=== PATIENT | female | born 1990 | race Two or more races ===

== ENCOUNTER 2019-12-27 15:38 | Emergency (ER) | payer SELFPAY ==
[~2019-12-27] VITALS: Ht 149.9 cm; Wt 66.0 kg
--- NOTE | 2019-12-27 16:19 | NUR ---
PATIENT LIAISON ESSENCE VIA [email or web address] #[id number] USED FOR INITIAL PT CHECK IN AND ASSESSMENT. PT GIVEN INSTRUCTIONS ON HOW TO PROPERLY PROVIDER UA SAMPLE. CURRENTLY IN BATHROOM. PT MOST COMFORTABLE STANDING. NAD NOTED AT THIS TIME. SON IS AT THE BEDSIDE. PT REPORTS VB SPOTTING. LMP 10/20/19. POS TEST X2 DAYS AGO. CONCERNED ABOUT MISCARRIAGE. PT REPORTS SOME INTERMITTENT ABDOMINAL CRAMPING. VERY UNCOMFORTABLE LOW BACK, NONTENDER ON PALPATION.
--- NOTE | 2019-12-27 16:29 | NUR ---
UA SENT TO LAB.
[2019-12-27 16:46] LABS: BASOPHILS # (AUTO) 0.03 x10^3/uL (0-0.1); BASOPHILS % (AUTO) 0 % (0-1); EOSINOPHILS # (AUTO) 0.15 x10^3/uL (0-0.4); EOSINOPHILS % (AUTO) 2 % (1-7); LYMPHOCYTES # (AUTO) 1.89 x10^3/uL (1-3.4); LYMPHOCYTES % (AUTO) 30 % (22-44); MD NO; MEAN CORPUSCULAR HEMOGLOBIN 31.6 pg (27.0-34.8); MEAN CORPUSCULAR HGB CONC 34.2 g/dL (32.4-35.8); MEAN CORPUSCULAR VOLUME 92.4 fL (80-100); MEAN PLATELET VOLUME 8.9 fL (7.4-10.4); MONOCYTES # (AUTO) 0.41 x10^3/uL (0.2-0.8); MONOCYTES % (AUTO) 7 % (2-9); NEUTROPHILS # (AUTO) 3.76 x10^3/uL (1.8-6.8); NEUTROPHILS % (AUTO) 60 % (42-75); PLATELET COUNT 306 x10^3/uL (130-400); RED BLOOD COUNT 4.06 x10^6/uL (3.82-5.3); RED CELL DISTRIBUTION WIDTH 12.7 % (9.6-15.2)
[2019-12-27 16:52] LABS: ALANINE AMINOTRANSFERASE 38 U/L (12-78); ANION GAP 7 mmol/L (5-15); CALCIUM 8.7 mg/dL (8.5-10.1); CHLORIDE 108 mmol/L (98-107); CREATININE 0.63 mg/dL (0.55-1.02)
[2019-12-27 17:07] LABS: ALKALINE PHOSPHATASE 70 U/L (45-117); BILIRUBIN,TOTAL 0.4 mg/dL (0.2-1.0)
[2019-12-27 17:15] LABS: MICROSCOPIC INDICATED
--- NOTE | 2019-12-27 17:24 | NUR ---
PT TO US.
--- NOTE | 2019-12-27 18:10 | NUR ---
REPORT TO JAY HARVEY. PT BACK FROM US AT THIS TIME. NAD NOTED.
[2019-12-27 18:40] LABS: MICROSCOPIC INDICATED
--- NOTE | 2019-12-27 19:22 | NUR ---
PT UP FOR RECHECK AT THIS TIME.
[2019-12-27 19:24] VITALS: BP 103/57
--- NOTE | 2019-12-27 19:25 | NUR ---
PT LAYING BACK IN BED, RESPIRATIONS EVEN AND UNLABORED. PT LAYING RECLINED IN BED, NAD NOTED AT THIS TIME. SON REMAINS AT BEDSIDE. AWAITING RECHECK.
--- NOTE | 2019-12-27 19:57 | NUR ---
DC INFORMATION VIA POWER ORIGINATOR WITH [facility]. VERBALIZES UNDERSTANDING. REVIEWED WITH RN. SON REMAINS AT BEDSIDE. READY FOR DC.
== END 2019-12-27 20:15 | disposition home or self-care (01) ==
LOC: ED 18:37
DX: O03.9 Complete or unspecified spontaneous abortion without complication (principal)
CPT/HCPCS: 36415; 76801; 80053; 81001; 84702; 85025; 86901; 87086; 87147; 99284